=== PATIENT | male | born 1965 | race Caucasian/White ===

== ENCOUNTER → 2019-03-31 09:14 | Outpatient (BNVA) | payer MEDICARE, SELFPAY | PROVIDERS: Family Provider Nurse Practitioner; PCP Nurse Practitioner; Visit Provider Psychiatry & Neurology Psychiatry | DX: F31.9 Bipolar disorder, unspecified (principal) | CPT/HCPCS: 80053; 80164; 85025 ==

== ENCOUNTER → 2019-04-05 09:27 | Outpatient (BNVA) | payer MEDICARE, SELFPAY | PROVIDERS: Family Provider Nurse Practitioner; PCP Nurse Practitioner; Visit Provider Psychiatry & Neurology Psychiatry | DX: F31.74 Bipolar disorder, in full remission, most recent episode manic (principal); F10.21 Alcohol dependence, in remission | CPT/HCPCS: 99214 ==

== ENCOUNTER 2019-06-16 11:15 | Emergency (ER) | payer MEDICARE, SELFPAY ==
[2019-06-16 11:29] VITALS: BP 149/102; PULSE 88; RESP 18; TEMP 37.2; O2SAT 96; BMI 32.8
--- NOTE | 2019-06-16 11:54 | ED_ITS ---
HPI - General Adult General: Chief complaint: General Medical Stated complaint: BUMP ON LEFT SIDE OF HEAD Time Seen by Provider: 06/16/19 11:20 History of Present Illness: HPI narrative: Patient complains of swelling to the right protestant area for the last 3 to 4 days. This in the past and is just went away. He denies headache visual disturbances does not have any swelling claudication of his jaw denies any fever or any other signs and symptoms with this. Does not have any polymyalgia rheumatica. MD complaint: Skin swelling Onset (ago): day(s) Location: head Radiation: non-radiation Severity: mild Relieving factors: none Exacerbating factors: none Associated symptoms: Reports no associated symptoms; Deny chest pain, dyspnea, headache(s), nausea, rash or vomiting Review of Systems Narrative: Patient states he has some mild swelling to his right protestant area no pain fever or other related problems said he notices more when he chews food he can see that the muscle appears swelled. Const: Denies: fever, chills or body aches Eyes: Denies: change in vision or blurry vision ENMT: Denies: throat pain or nasal congestion Card: Denies: chest pain or shortness of breath on exertion Resp: Denies: shortness of breath, productive cough or non-productive cough GI: Denies: abdominal pain, nausea or vomiting : Denies: difficulty urinating Musc: Denies: extremity pain Skin/Breast: Denies: rash Neuro: Denies: headache Psych: Denies: anxiety or depression Rufino/Lymph: Denies: easy bruising PFS ED PFSH: Social History (Updated 04/05/19 @ 10:02 by Tavo Ayers LPN) Smoking and tobacco status: current every day smoker cigarettes Packs smoked per day: 1 Years cigarettes smoked: 35 Quit status (tobacco): has tried quititng Number of times tried to quit tobacco: 7 Second hand smoke exposure: Yes Smoking risk assessment/counseling performed?: Yes Tobacco counseling given: counseling >3 minutes Physical Exam Narrative: EXAM NARRATIVE: Possible mild swelling to the right protestant area very hard to distinguish from the left temporal area. But does seem slightly raised nontender to touch there is no erythema present does have full range of motion of his jaw with no pain no other noted problems. Const: COMMON NORMALS: no apparent distress, average body habitus and oriented x3 HENMT: COMMON NORMALS: normocephalic HEAD & SCALP: normal to inspection and normocephalic FACE & SINUS: normal facial exam Eye: COMMON NORMALS: conjunctivae normal GENERAL EYE: normal appearance of both eyes CONJUNCTIVA: Yes conjunctivae normal Neck/C-Spine: COMMON NORMALS: no JVD Chest: COMMONS NORMALS: inspection of chest normal Resp: COMMON NORMALS: normal respiratory effort and clear to auscultation bilaterally AUSCULTATION: clear to auscultation bilaterally Cardio: COMMON NORMALS: no JVD, regular rate and regular rhythm RATE: regular rate RHYTHM: regular rhythm GI: COMMON NORMALS: normal to inspection, nondistended, normoactive bowel sounds Extremity: COMMON NORMALS: normal to inspection and full ROM Neuro: COMMON NORMALS: oriented x3 Course Vital Signs: Vital signs: Vital Signs Temperature 98.9 F 06/16/19 11:29 Pulse Rate 88 06/16/19 11:29 Respiratory Rate 18 06/16/19 11:29 Blood Pressure 149/102 06/16/19 11:29 Pulse Oximetry 96 06/16/19 11:29 Discharge Plan Discharge Patient Disposition: Home, Self-Care Clinical Impression: Skin swelling Condition: Stable Prescriptions: No Action multivitamin Tablet 1 tab PO QAM RF: 0 aspirin 81 mg tablet,delayed release (DR/EC) 81 mg PO DAILY RF: 0 acetaminophen [Tylenol] 325 mg tablet 650 mg PO DAILY PRN (Reason: fever or pain) RF: 0 [place] Cough Drops 3.2 mg lozenge 3.2 mg MUCOUS MEM Q4H RF: 0 ibuprofen 200 mg tablet 200 mg PO Q6H PRNRF: 0 calcium carbonate [Calcium 500] 500 mg calcium (1,250 mg) tablet,chewable 500 mg PO DAILY RF: 0 ascorbic acid (vitamin C) 500 mg tablet 250 mg PO .AM RF: 0 divalproex [Depakote] 500 mg tablet,delayed release (DR/EC) 500 mg PO BID Qty: 60 RF: 2 risperidone [Risperdal] 0.5 mg tablet 0.5 mg PO DAILY Qty: 30 RF: 2 Discharge Orders: Discharge Order (Routine); Ordered 06/16/19 Ordered By: Amado Adams Referrals: Jessica Germain FNP [Primary Care Provider] - Discharge Diet: Usual diet Discharge Activity: Resume usual activity Activity Restrictions/Additional Instructions: Follow-up with Jessica Germain's nurse to see about getting referral to an ENT ER with Dr. Weir's nurse Vicki ask for an ENT referral. Coding Level of Care Code ED Scan Coordinator for Jermaine Zelaya
[2019-06-16 12:30] VITALS: BP 150/92; PULSE 85; RESP 16; O2SAT 95
== END 2019-06-16 12:30 | disposition home or self-care (01) ==
LOC: ER 12:12
PROVIDERS: Emergency Provider Nurse Practitioner Family; Family Provider Nurse Practitioner; PCP Nurse Practitioner
DX: R22.0 Localized swelling, mass and lump, head (principal); F17.210 Nicotine dependence, cigarettes, uncomplicated; Z79.82 Long term (current) use of aspirin
CPT/HCPCS: 12345; 99281

== ENCOUNTER → 2019-07-04 07:48 | Outpatient (BNVA) | payer MEDICARE, SELFPAY | PROVIDERS: Family Provider Nurse Practitioner; PCP Nurse Practitioner; Visit Provider Psychiatry & Neurology Psychiatry | DX: F10.21 Alcohol dependence, in remission (principal); F31.9 Bipolar disorder, unspecified | CPT/HCPCS: 99213 ==

== ENCOUNTER → 2019-10-17 08:23 | Outpatient (BNVA) | payer MEDICARE, SELFPAY | PROVIDERS: Family Provider Nurse Practitioner; PCP Nurse Practitioner; Visit Provider Psychiatry & Neurology Psychiatry | DX: F31.9 Bipolar disorder, unspecified (principal); F10.21 Alcohol dependence, in remission; F41.1 Generalized anxiety disorder | CPT/HCPCS: 99213 ==

== ENCOUNTER → 2020-01-17 07:37 | Outpatient (BNVA) | payer MEDICARE, SELFPAY | PROVIDERS: Family Provider Nurse Practitioner; PCP Nurse Practitioner; Visit Provider Psychiatry & Neurology Psychiatry | DX: F31.9 Bipolar disorder, unspecified (principal); F10.21 Alcohol dependence, in remission | CPT/HCPCS: 99213 ==

== ENCOUNTER → 2020-04-18 07:29 | Outpatient (BNVA) | payer MEDICARE, SELFPAY | PROVIDERS: Family Provider Nurse Practitioner; PCP Nurse Practitioner; Visit Provider Psychiatry & Neurology Psychiatry | DX: F31.9 Bipolar disorder, unspecified (principal); F10.21 Alcohol dependence, in remission | CPT/HCPCS: 99214 ==

== ENCOUNTER 2020-05-04 20:31 | Inpatient (IN) | payer MEDICARE, SELFPAY ==
[2020-05-04 21:09] VITALS: BP 136/92; PULSE 85; RESP 14; TEMP 37.1; O2SAT 96; BMI 33.1
--- NOTE | 2020-05-04 21:23 | ED_ITS ---
HPI - Psych General: Chief Complaint: Psychiatric Symptoms Stated Complaint: psych eval Time Seen by Provider: 05/04/20 21:20 Source: patient Mode of arrival: ambulatory Limitations: no limitations History of Present Illness: HPI Narrative: Patient is a 54-year-old male who presents to ED today requesting admission to NPU for thoughts of suicide. Patient tells me over the past few days he has felt suicidal with a plan to either stab myself or hang myself . He denies any previous suicide attempts. When asked if he is homicidal he states not yet-that is why I want to get help . Patient admits to auditory hallucinations. He has had these previously. He states he has a diagnosis of bipolar schizoaffective disorder. Patient sees Dr. Wood at [facility]. He states his last several visits have been telehealth visits. He tells me he takes Risperidone and Depakote. He has been taking these as prescribed. Patient admits to mild alcohol use. No drug use. MD complaint: suicidal ideation Onset (ago): day(s) Duration: constant History of same: Yes Relieving factors: none Exacerbating factors: none Associated psychiatric symptoms: depression and auditory hallucinations Associated symptoms: Reports auditory hallucinations, depression and suicidal ideation; Deny visual hallucinations or homicidal ideation Treatments prior to arrival: none If self harm: admits thoughts of self harm and has plan Review of Systems Const: Denies: fever(s) or chills Card: Denies: chest pain, palpitations, lightheadedness or syncope Resp: Denies: dyspnea GI: Denies: abdominal pain, nausea, vomiting or diarrhea Skin/Breast: Denies: rash Neuro: Denies: headache(s) Psych: Reports: anxiety, depression, hopelessness, loss of interest, auditory hallucinations and suicidal ideation; Denies: visual hallucinations or homicidal ideation [facility] ED PFSH: Social History (Updated 04/05/19 @ 10:02 by Tavo Ayers LPN) Smoking and tobacco status: current every day smoker cigarettes Packs smoked per day: 1 Years cigarettes smoked: 35 Quit status (tobacco): has tried quititng Number of times tried to quit tobacco: 7 Second hand smoke exposure: Yes Smoking risk assessment/counseling performed?: Yes Tobacco counseling given: counseling >3 minutes Physical Exam Const: COMMON NORMALS: no acute distress, patient oriented x3, alert and well nourished GENERAL APPEARANCE: cooperative ORIENTATION/CONSCIOUSNESS: Yes awake, Yes oriented to person, Yes oriented to place and Yes oriented to time HENMT: COMMON NORMALS: normocephalic and atraumatic HEAD & SCALP: normocephalic and atraumatic Resp: COMMON NORMALS: normal respiratory effort and clear to auscultation bilaterally AUSCULTATION: clear to auscultation bilaterally Cardio: COMMON NORMALS: regular rate and regular rhythm RATE: regular rate RHYTHM: regular rhythm Neuro: MANUEL COMA SCALE: document GCS findings [place] coma scale eye opening: Spontaneous [place] coma scale verbal response: Orientated Manuel coma scale motor response: Obey commands Manuel coma scale total score: 15 COMMON NORMALS: patient oriented x3 SENSORIUM/ORIENTATION: Yes alert, Yes oriented to person, Yes oriented to place and Yes oriented to time Psych: COMMON NORMALS: mental status grossly normal, Normal thought process present, cooperative, normal affect and activity/motor behavior normal APPEARANCE: Yes grossly normal ATTITUDE: Yes calm ACTIVITY/MOTOR BEHAVIOR: Yes appropriate eye contact and No psychomotor agitation SPEECH: Yes slow MOOD & AFFECT: Yes euthymic mood THOUGHT PROCESS: Normal thought process present THOUGHT CONTENT: Yes Normal thought content present A TTENTION/CONCENTRATION: Yes attention grossly intact and Yes concentration grossly intact MEMORY/COGNITION: Yes memory grossly intact and Yes cognition grossly intact INSIGHT: Good insight present (Psych) JUDGEMENT: Good judgement present (Psych) MDM - Psych Lab Data: Labs: Lab Results 05/04/20 05/04/20 05/04/20 Range/Units 21:40 21:40 21:40 WBC 8.7 (4.0-10.0) 10^3/ uL RBC 4.52 (4.1-5.3) 10^6/u L Hgb 15.1 (11.7-16.6) g/dL Hct 43.0 (42.0-52.0) % MCV 95.1 H (80-94) fL MCH 33.4 (28.0-34.0) pg MCHC 35.1 (30.0-36.0) g/dL RDW 11.4 L (12.1-15.1) % Plt Count 294 (130-400) 10^3/c mm MPV 10.3 (7.4-10.4) fL Neut % (Auto) 62.0 % Lymph % (Auto) 29.1 % [place] % (Auto) 7.4 % Eos % (Auto) 0.8 % Baso % (Auto) 0.6 % Neut # (Auto) 5.38 (1.8-7.7) 10^3/u L Lymph # (Auto) 2.5 (0.8-4.8) 10^3/u L [place] # (Auto) 0.6 (0.2-0.9) 10^3/u L Eos # (Auto) 0.1 (0.0-0.8) 10^3/u L Baso # (Auto) 0.1 (0.0-0.1) 10^3/u L Nucleated RBC % (a uto) 0 % Nucleated RBCs # 0.0 /100WBC Sodium 137 (136-145) mmol/L Potassium 4.4 (3.5-5.1) mmol/L Chloride 103 (98-107) mmol/L Carbon Dioxide 23 (22-29) mmol/L Anion Gap 15.4 (5-19) BUN 11 (6-20) mg/dL Creatinine 0.7 (0.7-1.2) mg/dL GFR Calculation 118.0 (90-130) mL/min Glucose 95 (65-115) mg/dL Calculated Osmolal ity 283 L (285-295) mOsm/k g Calcium 9.3 (8.5-10.5) mg/dL Total Bilirubin 0.3 (0.15-1.2) mg/dL AST 26 (0-40) U/L ALT 29 (0-41) U/L Alkaline Phosphata se 68 (40-130) IU/L Total Protein 7.1 (6.6-8.7) g/dL Albumin 4.3 (3.5-5.2) g/dL Globulin 2.8 (1.3-4.6) g/dL Salicylates < 0.3 L (3-10) mg/dL Urine Opiates Scre en Negative (Negative) ng/mL Acetaminophen < 5.0 L (10-30) ug/mL Ur Barbiturates Sc reen Negative (Negative) ng/mL Ur Phencyclidine S crn Negative (Negative) ng/mL Ur Amphetamines Sc reen Negative (Negative) ng/mL U Benzodiazepines Scrn Negative (Negative) ng/mL Urine Cocaine Scre en Negative (Negative) ng/mL U Marijuana (THC) Screen Positive H (Negative) ng/mL Ethyl Alcohol < 10 (0-10) mg/dL Discharge Plan Discharge Patient Disposition: Admitted As Inpatient Clinical Impression: Suicidal ideation, Auditory hallucinations Condition: Stable Coding Level of Care Code ED Resizer Operator for Jermaine Zelaya Exam Detailed
[2020-05-04 21:52] LABS: Basophils # 0.1 10^3/uL (0.0-0.1); Basophils % 0.6 %; Eosinophils # 0.1 10^3/uL (0.0-0.8); Eosinophils % 0.8 %; Hemoglobin 15.1 g/dL (11.7-16.6); Lymphocytes # 2.5 10^3/uL (0.8-4.8); Lymphocytes % 29.1 %; Mean Corpuscular HGB Conc 35.1 g/dL (30.0-36.0); Mean Corpuscular Hemoglobin 33.4 pg (28.0-34.0); Mean Corpuscular Volume 95.1 fL (80-94); Mean Platelet Volume 10.3 fL (7.4-10.4); Monocytes # 0.6 10^3/uL (0.2-0.9); Monocytes % 7.4 %; Neutrophils # 5.38 10^3/uL (1.8-7.7); Nucleated Red Blood Cells % 0 %; Platelet Count 294 10^3/cmm (130-400); Red Blood Count 4.52 10^6/uL (4.1-5.3); Red Cell Distribution Width 11.4 % (12.1-15.1); White Blood Count 8.7 10^3/uL (4.0-10.0)
[2020-05-04 22:03] LABS: Amphetamines Screen Urine Negative (Negative); Barbiturates Screen Urine Negative (Negative); Benzodiazepines Screen Urine Negative (Negative); Cocaine Screen Urine Negative (Negative); Opiate Screen Urine Negative (Negative); PCP Screen Urine Negative (Negative); THC Screen Urine Positive (Negative)
[2020-05-04 22:06] LABS: Alanine Aminotransferase 29 U/L (0-41); Albumin Level 4.3 g/dL (3.5-5.2); Alkaline Phosphatase 68 IU/L (40-130); Anion Gap 15.4 (5-19); Aspartate Amino Transferase 26 U/L (0-40); Blood Urea Nitrogen 11 mg/dL (6-20); Calcium 9.3 mg/dL (8.5-10.5); Carbon Dioxide 23 mmol/L (22-29); Chloride 103 mmol/L (98-107); Globulin 2.8 g/dL (1.3-4.6); Glucose 95 mg/dL (65-115); Osmolality Calculated 283 mOsm/kg (285-295); Potassium 4.4 mmol/L (3.5-5.1); Sodium 137 mmol/L (136-145); Total Bilirubin 0.3 mg/dL (0.15-1.2); Total Protein 7.1 g/dL (6.6-8.7)
[2020-05-04 22:09] LABS: Acetaminophen < 5.0 ug/mL (10-30); Alcohol Level < 10 mg/dL (0-10); Salicylate < 0.3 mg/dL (3-10)
[2020-05-04 22:53] VITALS: BP 136/97; PULSE 84; RESP 14; O2SAT 95
[2020-05-04 23:05] VITALS: BP 138/98; PULSE 79; RESP 18; TEMP 36.4; O2SAT 95
--- NOTE | 2020-05-05 00:24 | PC.NURSE ---
Skin assessment revealed old surgical scar to left knee. He has minor scrapes and scratches from clearing brush.
[2020-05-05 06:00] VITALS: BP 115/72; PULSE 84; RESP 18; TEMP 36.4; O2SAT 94
[2020-05-05] MEDS: nicotine 2 mg Gum BUCCAL ×4 (08:04→17:08)
[2020-05-05] MEDS: multivitamin therapeutic Tablet 1 TAB PO (08:43)
[2020-05-05] MEDS: risperiDONE 0.25 mg Tablet 0.5 MG PO ×2 (08:43→14:25)
[2020-05-05] MEDS: aspirin 81 mg EC Tablet PO (08:43)
[2020-05-05] MEDS: ascorbic acid 500 mg Tablet 250 MG PO (08:43)
[2020-05-05] MEDS: cholecalciferol (vitamin D3) 5,000 unit Tablet 5000 UNIT PO (09:47)
[2020-05-05 12:32] LABS: Valproic Acid Level 26.8 ug/mL (50-100)
[2020-05-05] MEDS: divalproex DR 500 mg Tablet PO ×2 (12:57→14:25)
[2020-05-05 13:58] VITALS: BP 104/69; PULSE 95; RESP 18; TEMP 37.1
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
[2020-05-05 20:49] VITALS: BP 107/68; PULSE 73; RESP 17; TEMP 36.2; O2SAT 95
[2020-05-05] MEDS: hyDROXYzine 25 mg Capsule 50 MG PO (21:07)
[2020-05-05] MEDS: trazodone 50 mg Tablet PO (21:07)
[2020-05-05] MEDS: OLANZapine 5 mg ODT PO (21:07)
[2020-05-06 06:00] VITALS: BP 114/72; PULSE 88; RESP 17; TEMP 36.9; O2SAT 95
[2020-05-06] MEDS: ascorbic acid 500 mg Tablet 250 MG PO (06:13)
[2020-05-06] MEDS: multivitamin therapeutic Tablet 1 TAB PO (06:13)
[2020-05-06] MEDS: nicotine 2 mg Gum BUCCAL ×4 (06:38→16:59)
[2020-05-06] MEDS: cholecalciferol (vitamin D3) 5,000 unit Tablet 5000 UNIT PO (08:55)
[2020-05-06] MEDS: risperiDONE 1 mg Tablet PO (08:55)
[2020-05-06] MEDS: divalproex DR 500 mg Tablet 1000 MG PO (08:55)
[2020-05-06] MEDS: aspirin 81 mg EC Tablet PO (08:55)
[2020-05-06 14:00] VITALS: BP 106/76; PULSE 77; RESP 16; TEMP 36.9; O2SAT 94
--- NOTE | 2020-05-06 18:57 | P.PN_ITS ---
Subjective NPU Subjective: Interval history: Kevin presents today reporting that he is feeling okay without any side effects of the medication of the knees today. He reports he is feeling safe in the hospital but denied feeling safe about the idea of going home today. We discussed the challenges he is dealing with right now living alone. We discussed the possibility of switching his Depakote to the extended release version. But he agreed that having all his medication at 1 time in the morning would assist in him avoiding nonadherence to his doses. Mental Status Exam MSE Comments: his is an obese white male with hospital scrubs on with limited eye contact and adequate grooming. No abnormal movements except for mild psychomotor retardation. Cooperative with exam in mild distress. Speech was decreased rate and volume. Mood described as okay, affect congruent. Thought process organized. Thought content: Patient denied suicidal or homicidal ideation, but he is unable to contract for safety outside of the hospital, he endorsed paranoia and paranoia was noted/he was guarded, he endorsed auditory hallucinations but denied visual hallucinations. Attention and concentration were intact and memory appeared mostly reliable but none were formally tested. He is alert and oriented x3. Insight and judgment appeared fair and impulse control appeared limited. Vitals/I&O/Wt Last Vital Signs Temp 98.1 F 05/06/20 22:00 Pulse 88 05/06/20 22:00 Resp 16 05/06/20 22:00 BP 103/71 05/06/20 22:00 Pulse Ox 94 05/06/20 22:00 Weight last 48 hrs Weight 98.883 kg Data NPU : 05/04/20 21:40 05/04/20 21:40 A&P Additional A&P Information (1) Suicidal ideation: (2) Auditory hallucinations: (3) Alcohol use disorder, severe, in sustained remission: (4) Bipolar 1 disorder: Additional A&P Information This is a 54-year-old white male with a long history of mental health and addiction issues who presents reporting suicidal thoughts was brought into the hospital currently adherent to medication but open to changes. 1. Continue current medication. 2. Continue every 15 minute checks for safety. 3. Encourage individual, group and milieu therapies. 4. Encourage sober living treatment after discharge at the highest level of care to which he is willing to commit. Involuntary Hold Information 96 Hour Hold: 96 Hour Involuntary Admission: No Attestations NPU Medical Necessity Statement*: Inpatient hospitalization is medically necessary and the clinically appropriate intervention at this time. We will monitor medications and make changes as indicated. Likely length of stay 2-4 days. Coding Level of Care Code Acute Residential Care Facility Manager for Jermaine Zelaya
--- NOTE | 2020-05-06 19:59 | PC.RESP ---
Smoking Cessation information sent to patient.
[2020-05-06 22:00] VITALS: BP 103/71; PULSE 88; RESP 16; TEMP 36.7; O2SAT 94
[2020-05-07] MEDS: multivitamin therapeutic Tablet 1 TAB PO (06:11)
[2020-05-07] MEDS: ascorbic acid 500 mg Tablet 250 MG PO (06:11)
[2020-05-07] MEDS: nicotine 2 mg Gum BUCCAL ×4 (06:12→17:31)
[2020-05-07 06:42] VITALS: BP 97/66; PULSE 76; RESP 18; TEMP 36.6; O2SAT 96
[2020-05-07] MEDS: cholecalciferol (vitamin D3) 5,000 unit Tablet 5000 UNIT PO (08:57)
[2020-05-07] MEDS: divalproex DR 500 mg Tablet 1000 MG PO (08:57)
[2020-05-07] MEDS: risperiDONE 1 mg Tablet PO (08:58)
[2020-05-07] MEDS: aspirin 81 mg EC Tablet PO (08:58)
--- NOTE | 2020-05-07 13:44 | PC.SOCIAL ---
*IMM* Patient received Page two of IMM. Placed copy in chart and initialled.
[2020-05-07 14:00] VITALS: BP 119/81; PULSE 87; RESP 16; TEMP 36.1; O2SAT 96
--- NOTE | 2020-05-07 17:59 | PM.NPN ---
Subjective NPU Subjective: Interval history: Kevin presents today reporting that he is feeling a little bit better. We discussed the fact that his sister is his guardian which was not initially clear. He reports that he has come to understand that he needs to avoid isolation because that can lead to his low feelings. We reviewed his medication and identified he is having some improvement. We began discussing possible discharge considerations but he understands we need to have his sister be an integral part of this. He endorses some improvement in his overall presentation. And reported that getting his sleep on track has been difficult as he is felt sometimes overmedicated with the sleep medication and sometimes having insomnia with lower dosing. Mental Status Exam MSE Comments: This is an obese white male with hospital scrubs on with limited eye contact and adequate grooming. No abnormal movements except for mild psychomotor retardation. Cooperative with exam in less distress. Speech was decreased rate and volume. Mood described as may be a little better, affect congruent. Thought process organized. Thought content: Patient denied suicidal or homicidal ideation, but he is unable to contract for safety outside of the hospital, he endorsed paranoia and paranoia was noted/he was guarded, he endorsed auditory hallucinations but denied visual hallucinations. Attention and concentration were intact and memory appeared mostly reliable but none were formally tested. He is alert and oriented x3. Insight and judgment appeared fair and impulse control appeared limited. Vitals/I&O/Wt Last Vital Signs Temp 97.2 F L 05/07/20 20:10 Pulse 79 05/07/20 20:10 Resp 17 05/07/20 20:10 BP 112/82 05/07/20 20:10 Pulse Ox 94 05/07/20 20:10 Data NPU : 05/04/20 21:40 05/04/20 21:40 A&P Additional A&P Information (1) Suicidal ideation: (2) Auditory hallucinations: (3) Alcohol use disorder, severe, in sustained remission: (4) Bipolar 1 disorder: Additional A&P Information This is a 54-year-old white male with a long history of mental health and addiction issues who presents reporting suicidal thoughts was brought into the hospital currently adherent to medication but open to changes. 1. Continue current medication. 2. Continue every 15 minute checks for safety. 3. Encourage individual, group and milieu therapies. 4. Encourage sober living treatment after discharge at the highest level of care to which he is willing to commit. Involuntary Hold Information 96 Hour Hold: 96 Hour Involuntary Admission: No Attestations NPU Medical Necessity Statement*: Inpatient hospitalization is medically necessary and the clinically appropriate intervention at this time. We will monitor medications and make changes as indicated. Likely length of stay 1-3 days. Coding Level of Care Code Acute Precision Instrument And Tool Maker for Jermaine Zelaya
[2020-05-07 20:10] VITALS: BP 112/82; PULSE 79; RESP 17; TEMP 36.2; O2SAT 94
[2020-05-07] MEDS: trazodone 50 mg Tablet PO (21:33)
[2020-05-07] MEDS: hyDROXYzine 25 mg Capsule 50 MG PO (21:42)
--- NOTE | 2020-05-07 21:43 | PC.NURSE ---
trazadone 50mg po and Visteril 50mg requested for sleep and anxiety.
[2020-05-08 06:00] VITALS: BP 116/60; PULSE 66; RESP 18; TEMP 36.7; O2SAT 90
[2020-05-08] MEDS: nicotine 2 mg Gum BUCCAL ×4 (06:21→18:31)
[2020-05-08] MEDS: ascorbic acid 500 mg Tablet 250 MG PO (08:03)
[2020-05-08] MEDS: cholecalciferol (vitamin D3) 5,000 unit Tablet 5000 UNIT PO (08:04)
[2020-05-08] MEDS: risperiDONE 1 mg Tablet PO (08:04)
[2020-05-08] MEDS: multivitamin therapeutic Tablet 1 TAB PO (08:04)
[2020-05-08] MEDS: divalproex DR 500 mg Tablet 1000 MG PO (08:05)
[2020-05-08] MEDS: aspirin 81 mg EC Tablet PO (08:05)
[2020-05-08 14:00] VITALS: BP 106/76; PULSE 79; RESP 18; TEMP 36.1; O2SAT 94
--- NOTE | 2020-05-08 18:30 | PM.NPN ---
Subjective NPU Subjective: Interval history: Kevin presents today reporting that he is feeling better to some degree as he is hopeful for some alternatives.. He reports that he did speak to his sister and is open to working with the treatment team for possible placements. He identified that being isolated is bad for him. He reports that he is feeling the medication changes are probably helpful. We discussed the possibility of getting a Depakote level at trough so that is outpatient team ultimately can determine whether the 1000 milligrams when properly administered is a sufficient dose. Mental Status Exam MSE Comments: This is an obese white male with hospital scrubs on with limited eye contact and adequate grooming. No abnormal movements except for mild psychomotor retardation. Cooperative with exam in less distress. Speech was decreased rate and volume. Mood described as doing all right, affect congruent. Thought process organized. Thought content: Patient denied suicidal or homicidal ideation, he reports he is starting to feel like he could manage elsewhere with a discharge destination is identified, he endorsed improvement in his paranoia and and he appeared less guarded, he endorsed that his hallucinations have quieted. Attention and concentration were intact and memory appeared mostly reliable but none were formally tested. He is alert and oriented x3. Insight and judgment appeared fair and impulse control appeared limited. Vitals/I&O/Wt Last Vital Signs Temp 97.6 F 05/08/20 20:29 Pulse 80 05/08/20 20:29 Resp 17 05/08/20 20:29 BP 113/78 05/08/20 20:29 Pulse Ox 94 05/08/20 20:29 Data NPU : 05/04/20 21:40 05/04/20 21:40 A&P Additional A&P Information (1) Suicidal ideation: (2) Auditory hallucinations: (3) Alcohol use disorder, severe, in sustained remission: (4) Bipolar 1 disorder: Additional A&P Information This is a 54-year-old white male with a long history of mental health and addiction issues who presents reporting suicidal thoughts was brought into the hospital currently adherent to medication but open to changes. 1. Continue current medication. 2. Continue every 15 minute checks for safety. 3. Encourage individual, group and milieu therapies. 4. Encourage sober living treatment after discharge at the highest level of care to which he is willing to commit. Involuntary Hold Information 96 Hour Hold: 96 Hour Involuntary Admission: No Attestations NPU Medical Necessity Statement*: Inpatient hospitalization is medically necessary and the clinically appropriate intervention at this time. We will monitor medications and make changes as indicated. Likely length of stay 1-2 days. Coding Level of Care Code Acute Combine Mechanic for Jermaine Zelaya
[2020-05-08 20:29] VITALS: BP 113/78; PULSE 80; RESP 17; TEMP 36.4; O2SAT 94
[2020-05-09] MEDS: hyDROXYzine 25 mg Capsule 50 MG PO ×2 (01:22→21:18)
[2020-05-09] MEDS: trazodone 50 mg Tablet PO ×2 (01:50→21:18)
--- NOTE | 2020-05-09 02:54 | PC.NURSE ---
Pm assessment pt reports hx of COPD, lungs are diminished bilaterally on auscultation, pt denies any pain at this time, pt denies VH but states that he hears voices all the time. Pt reports lack of sleep and an increase of depression symptoms that have worsened over the last 3-4 weeks. Pt denies SI/HI at this time, pt contracted for safety.
[2020-05-09 06:00] VITALS: BP 113/78; PULSE 80; RESP 17; TEMP 36.4; O2SAT 94
[2020-05-09] MEDS: ascorbic acid 500 mg Tablet 250 MG PO (07:46)
[2020-05-09] MEDS: aspirin 81 mg EC Tablet PO (07:47)
[2020-05-09] MEDS: multivitamin therapeutic Tablet 1 TAB PO (07:47)
[2020-05-09] MEDS: divalproex DR 500 mg Tablet 1000 MG PO (07:47)
[2020-05-09] MEDS: cholecalciferol (vitamin D3) 5,000 unit Tablet 5000 UNIT PO (07:47)
[2020-05-09] MEDS: risperiDONE 1 mg Tablet PO ×2 (07:47→16:32)
[2020-05-09] MEDS: nicotine 2 mg Gum BUCCAL ×4 (07:48→16:32)
--- NOTE | 2020-05-09 11:10 | PC.SOCIAL ---
Important Medicare Message Reviewed updated Important Medicare Message with patient. Updated copy placed in chart and provided to patient.
--- NOTE | 2020-05-09 13:19 | PM.NPN ---
Subjective NPU Subjective: Interval history: Patient reports intermittent passive suicidal thoughts with no active intent or plan but continues to have concerns about potentially harming himself on leaving the hospital, denies any current suicidal ideation Continues to report ongoing depressive symptoms with mood congruent auditory hallucinations of hearing voices saying that he should just end his life but states that he has no thoughts of acting on these voices Denies any visual hallucinations Reports being compliant with medication and denies any medication side effects Reports improving appetite Continues to report difficulty with sleep requiring a sleep aid Per staff report, no interval behavioral disturbances Medications: Reviewed: Yes Mental Status Exam MSE Comments: Appears stated age, appropriately groomed and dressed in hospital scrubs, steady gait, calm, cooperative, interactive, good eye contact Psychomotor activity is neither increased nor decreased, no agitation Speech is normal rate, low volume, spontaneous, clear articulation, not pressured I feel depressed, full range, not labile Alert and oriented to person, place, time, situation Memory and concentration appear to be intact per interview Thought process, linear, no flight of ideas, no looseness of associations Thought content, no delusions, does not appear to be attending to any internal stimuli, no current suicidal ideation, no homicidal ideation Insight and judgment appear to be intact Vitals/I&O/Wt Last Vital Signs Temp 97.6 F 05/09/20 06:00 Pulse 80 05/09/20 06:00 Resp 17 05/09/20 06:00 BP 113/78 05/09/20 06:00 Pulse Ox 94 05/09/20 06:00 Data NPU : 05/04/20 21:40 05/04/20 21:40 A&P Assessment and plan (1) Suicidal ideation: Status: Acute (2) Schizoaffective disorder: Status: Acute Additional A&P Information 54-year-old male with longstanding history of schizoaffective disorder bipolar type presented with ongoing suicidal ideation with concerns of worsening depressive symptoms in the context of his worsening suicidal ideation and mood congruent auditory hallucinations. Patient's Depakote was increased secondary to difficulty with compliance with his second dose at home. Patient would benefit from repeating valproic acid level for effect as well as increasing risperidone to twice daily targeting mood and psychotic symptoms while monitoring for ongoing suicidal ideation. INCREASE to risperidone 1 mg twice daily Repeat Depakote level Continue to encourage patient to participate in unit activities, unit milieu Involuntary Hold Information 96 Hour Hold: 96 Hour Involuntary Admission: No Attestations NPU Medical Necessity Statement*: Patient continues require psychiatric hospitalization given ongoing depressive symptoms with suicidal ideation and psychotic symptoms Coding Level of Care Code Acute Child Welfare Specialist for [facility] Bina Diagnoses Suicidal ideation R45.851 Schizoaffective disorder F25.9
[2020-05-09 14:00] VITALS: BP 112/81; PULSE 80; RESP 20; TEMP 36.8; O2SAT 96
[2020-05-09 14:49] LABS: Valproic Acid Level 62.3 ug/mL (50-100)
--- NOTE | 2020-05-09 19:30 | P.PN_ITS ---
NPU Therapy Progress Note Therapy Progress Note Date: 05/09/20 Time In: 18:30 Time Out: 18:50 Symptoms Reported: noted to be irritable, reported frustration at not being able to exercise as says walking agitates the other patients Mood: stable; however, became agitated upon the end of conversation Progress Note: AIRPORT LOCATION MANAGER approached Kevin while in the dayroom, working on a puzzle. AIRPORT LOCATION MANAGER introduced herself and Kevin explains how he came to be hospitalized at [facility]. He reports that he was able to take himself to the ER after realizing his symptoms became elevated (psychosis) which is different that in previous admissions. He reports his hx is to escalate with his sx and becomes involved with law enforcement, either escorted to the hospital by PD or he is incarcerated. Intervention: AIRPORT LOCATION MANAGER listened and provided support. AIRPORT LOCATION MANAGER attempted to discuss how therapy could be beneficial to Kevin; however, it was observed he became agitated and told AIRPORT LOCATION MANAGER that this information is no different than information he has been hearing since 1995. AIRPORT LOCATION MANAGER provided Kevin her card and encouraged he follow up if he has questions. Reported Goals Before Discharge: none reported
--- NOTE | 2020-05-09 19:30 | PM.NPTHER ---
NPU Therapy Progress Note Therapy Progress Note Date: 05/09/20 Time In: 18:30 Time Out: 18:50 Symptoms Reported: noted to be irritable, reported frustration at not being able to exercise as says walking agitates the other patients Mood: stable; however, became agitated upon the end of conversation Progress Note: LEHR LOADER approached Kevin while in the dayroom, working on a puzzle. LEHR LOADER introduced herself and Kevin explains how he came to be hospitalized at [facility]. He reports that he was able to take himself to the ER after realizing his symptoms became elevated (psychosis) which is different that in previous admissions. He reports his hx is to escalate with his sx and becomes involved with law enforcement, either escorted to the hospital by PD or he is incarcerated. Intervention: LEHR LOADER listened and provided support. LEHR LOADER attempted to discuss how therapy could be beneficial to Kevin; however, it was observed he became agitated and told LEHR LOADER that this information is no different than information he has been hearing since 1995. LEHR LOADER provided Kevin her card and encouraged he follow up if he has questions. Reported Goals Before Discharge: none reported
[2020-05-09] MEDS: OLANZapine 5 mg ODT PO (21:18)
--- NOTE | 2020-05-09 21:20 | PC.NURSE ---
Patient requested Vistaril 50mg PO for anxiety. also was given 5mg Zyprexa PO for agitation.
[2020-05-09 22:00] VITALS: BP 118/61; PULSE 81; RESP 18; TEMP 36.8; O2SAT 95
[2020-05-10 06:00] VITALS: BP 113/66; PULSE 71; RESP 17; TEMP 36.9; O2SAT 94
[2020-05-10] MEDS: ascorbic acid 500 mg Tablet 250 MG PO (08:24)
[2020-05-10] MEDS: nicotine 21 mg Patch 1 PATCH TRANSDERMA (08:24)
[2020-05-10] MEDS: risperiDONE 1 mg Tablet PO ×2 (08:25→17:10)
[2020-05-10] MEDS: aspirin 81 mg EC Tablet PO (08:25)
[2020-05-10] MEDS: divalproex DR 500 mg Tablet 1000 MG PO (08:25)
[2020-05-10] MEDS: cholecalciferol (vitamin D3) 5,000 unit Tablet 5000 UNIT PO (08:25)
[2020-05-10] MEDS: multivitamin therapeutic Tablet 1 TAB PO (08:25)
--- NOTE | 2020-05-10 12:05 | PC.SOCIAL ---
1100 Important Medicare Message Updated copy of Important Medicare Message reviewed with patient. Updated copy in chart and provided to patient.
--- NOTE | 2020-05-10 13:02 | P.PN_ITS ---
Subjective NPU Subjective: Interval history: Patient states that he was able to sleep through the night for the first time in a while last night Reports some improvement in depressive symptoms, denies any suicidal ideation Continues to report auditory hallucinations that are mood congruent, denies any visual hallucinations, denies any delusions Reports being compliant with his medication, denies any medication side effects States that his appetite is improving Per staff report, no interval behavioral disturbances Mental Status Exam MSE Comments: Sitting on his bed, tired appearing, appropriately groomed and dressed, good eye contact, calm, cooperative Psychomotor activity is neither increased nor decreased, no agitation Speech is normal rate, low volume, spontaneous, clear articulation, not pressured I feel little better, distracted, not labile Alert and oriented to person, place, time, situation Memory and concentration appear to be intact per interview Thought process, linear, no flight of ideas, no looseness of associations Thought content, no delusions, does not appear to be attending to any internal stimuli, no current suicidal ideation, no homicidal ideation Insight and judgment appear to be intact Vitals/I&O/Wt Last Vital Signs Temp 98.5 F 05/10/20 06:00 Pulse 71 05/10/20 06:00 Resp 17 05/10/20 06:00 BP 113/66 05/10/20 06:00 Pulse Ox 94 05/10/20 06:00 Data NPU : 05/04/20 21:40 05/04/20 21:40 A&P Assessment and plan (1) Suicidal ideation: Status: Acute (2) Schizoaffective disorder: Status: Acute Additional A&P Information Continues to report some depressive symptoms, mood congruent auditory hallucinations but denies any suicidal ideation and reports overall some improvement. CONTINUE current medication, continue to monitor Involuntary Hold Information 96 Hour Hold: 96 Hour Involuntary Admission: No Attestations NPU Medical Necessity Statement*: Continues to require psychiatric hospitalization for medication stabilization Coding Level of Care Code Acute Composing Machine Operator for Jermaine Zelaya Diagnoses Suicidal ideation R45.851 Schizoaffective disorder F25.9
[2020-05-10 14:00] VITALS: BP 107/77; PULSE 85; RESP 20; TEMP 36.4; O2SAT 95
[2020-05-10] MEDS: trazodone 50 mg Tablet PO (20:13)
[2020-05-10] MEDS: hyDROXYzine 25 mg Capsule 50 MG PO (20:14)
[2020-05-10] MEDS: OLANZapine 5 mg ODT PO (20:15)
[2020-05-10 22:00] VITALS: BP 111/81; PULSE 76; RESP 18; TEMP 36.6; O2SAT 94
[2020-05-11 06:00] VITALS: BP 128/75; PULSE 72; RESP 17; TEMP 36.8; O2SAT 96
[2020-05-11] MEDS: aspirin 81 mg EC Tablet PO (09:27)
[2020-05-11] MEDS: ascorbic acid 500 mg Tablet 250 MG PO (09:27)
[2020-05-11] MEDS: divalproex DR 500 mg Tablet 1000 MG PO (09:27)
[2020-05-11] MEDS: multivitamin therapeutic Tablet 1 TAB PO (09:28)
[2020-05-11] MEDS: risperiDONE 1 mg Tablet PO ×2 (09:28→16:51)
[2020-05-11] MEDS: nicotine 21 mg Patch 1 PATCH TRANSDERMA (09:35)
--- NOTE | 2020-05-11 13:07 | P.PN_ITS ---
Subjective NPU Subjective: Interval history: Reports that he has slept well the last couple of nights and is feeling significantly better with no interval suicidal ideation Denies any interval auditory hallucinations Reports significant improvement to his depressive symptoms Reports being compliant with medication and denies any medication side effects Mental Status Exam MSE Comments: Appropriately groomed and dressed, calm and cooperative, good eye contact, pleasant Psychomotor activity is neither increased nor decreased, no agitation Speech is normal rate, low volume, spontaneous, clear articulation, not pressured I feel good, full range of affect, not labile Alert and oriented to person, place, time, situation Memory and concentration appear to be intact per interview Thought process, linear, no flight of ideas, no looseness of associations Thought content, no delusions, no hallucinations, no current suicidal ideation, no homicidal ideation Insight and judgment appear to be intact Vitals/I&O/Wt Last Vital Signs Temp 98.3 F 05/11/20 06:00 Pulse 72 05/11/20 06:00 Resp 17 05/11/20 06:00 BP 128/75 05/11/20 06:00 Pulse Ox 96 05/11/20 06:00 Data NPU : 05/04/20 21:40 05/04/20 21:40 A&P Assessment and plan (1) Suicidal ideation: Status: Acute (2) Schizoaffective disorder: Status: Acute Qualifiers: Schizoaffective disorder type: depressive Qualified Code(s): F25.1 - Schizoaffective disorder, depressive type Additional A&P Information CONTINUE current medication, continue to monitor Involuntary Hold Information 96 Hour Hold: 96 Hour Involuntary Admission: No Attestations NPU Medical Necessity Statement*: Continues to require psychiatric hospitalization medication stabilization, coordination for safe discharge Coding Level of Care Code Acute Automatic Glove Former for [facility] Garcia Diagnoses Suicidal ideation R45.851 Schizoaffective disorder F25.1 Schizoaffective disorder type: depressive
[2020-05-11 14:00] VITALS: BP 116/77; PULSE 73; RESP 20; TEMP 36.3; O2SAT 94
[2020-05-11] MEDS: hyDROXYzine 25 mg Capsule 50 MG PO (20:44)
[2020-05-11] MEDS: trazodone 50 mg Tablet PO (20:44)
[2020-05-11 21:11] VITALS: BP 115/77; PULSE 80; RESP 18; TEMP 36.8; O2SAT 94
[2020-05-12 06:00] VITALS: BP 131/83; PULSE 63; RESP 17; TEMP 36.8; O2SAT 99
[2020-05-12] MEDS: risperiDONE 1 mg Tablet PO ×2 (08:04→17:10)
[2020-05-12] MEDS: multivitamin therapeutic Tablet 1 TAB PO (08:04)
[2020-05-12] MEDS: cholecalciferol (vitamin D3) 5,000 unit Tablet 5000 UNIT PO (08:04)
[2020-05-12] MEDS: aspirin 81 mg EC Tablet PO (08:04)
[2020-05-12] MEDS: ascorbic acid 500 mg Tablet 250 MG PO (08:05)
[2020-05-12] MEDS: divalproex DR 500 mg Tablet 1000 MG PO (08:05)
[2020-05-12] MEDS: nicotine 21 mg Patch 1 PATCH TRANSDERMA (09:32)
--- NOTE | 2020-05-12 13:30 | PM.NPN ---
Subjective NPU Subjective: Interval history: Reports significant improvement in depressive symptoms, denies any interval suicidal ideation or thoughts about self-harm Reports sustained improvement in sleep Reports appetite has been good Denies any interval auditory hallucinations Reports being compliant with medication and denies any medication side effect Mental Status Exam MSE Comments: Sitting up on his bed, polite, interactive, appropriately groomed and dressed, good eye contact Psychomotor activity is neither increased nor decreased, no agitation Speech is normal rate, low volume, spontaneous, clear articulation, not pressured Good, full range of affect, not labile Alert and oriented to person, place, time, situation Memory and concentration appear to be intact per interview Thought process, linear, no flight of ideas, no looseness of associations Thought content, no delusions, no hallucinations, no current suicidal ideation, no homicidal ideation Insight and judgment appear to be intact Vitals/I&O/Wt Last Vital Signs Temp 98.2 F 05/12/20 06:00 Pulse 63 05/12/20 06:00 Resp 17 05/12/20 06:00 BP 131/83 05/12/20 06:00 Pulse Ox 99 05/12/20 06:00 Weight last 48 hrs Weight 98.883 kg Data NPU : 05/04/20 21:40 05/04/20 21:40 A&P Assessment and plan (1) Suicidal ideation: Status: Acute (2) Schizoaffective disorder: Status: Acute Qualifiers: Schizoaffective disorder type: depressive Qualified Code(s): F25.1 - Schizoaffective disorder, depressive type Additional A&P Information CONTINUE current medication, continue to monitor Involuntary Hold Information 96 Hour Hold: 96 Hour Involuntary Admission: No Attestations NPU Medical Necessity Statement*: Continues to require psychiatric hospitalization for medication stabilization, coordination for safe discharge Coding Level of Care Code Acute Wheel Filler for [facility] Diagnoses Suicidal ideation R45.851 Schizoaffective disorder F25.1 Schizoaffective disorder type: depressive
[2020-05-12 13:32] VITALS: BP 121/84; PULSE 97; RESP 18; TEMP 37
[2020-05-12 19:57] VITALS: BP 143/82; PULSE 84; RESP 16; TEMP 37.1; O2SAT 95
[2020-05-12] MEDS: trazodone 50 mg Tablet PO (20:11)
[2020-05-12] MEDS: hyDROXYzine 25 mg Capsule 50 MG PO (20:11)
[2020-05-12] MEDS: OLANZapine 5 mg ODT PO (20:11)
[2020-05-13 06:00] VITALS: BP 111/69; PULSE 64; TEMP 37.2; O2SAT 96
[2020-05-13] MEDS: divalproex DR 500 mg Tablet 1000 MG PO (07:48)
[2020-05-13] MEDS: risperiDONE 1 mg Tablet PO (07:48)
[2020-05-13] MEDS: aspirin 81 mg EC Tablet PO (07:49)
[2020-05-13] MEDS: multivitamin therapeutic Tablet 1 TAB PO (07:49)
[2020-05-13] MEDS: ascorbic acid 500 mg Tablet 250 MG PO (07:49)
[2020-05-13] MEDS: cholecalciferol (vitamin D3) 5,000 unit Tablet 5000 UNIT PO (07:49)
--- NOTE | 2020-05-13 10:15 | PC.SOCIAL ---
Important Medicare Message Reviewed previously signed Important Medicare Message with patient. Updated copy in chart and to patient.
--- NOTE | 2020-05-13 11:10 | P.DS_ITS ---
Diagnoses at Discharge Discharge Diagnosis (1) Suicidal ideation: Status: Acute (2) Schizoaffective disorder: Status: Acute Qualifiers: Schizoaffective disorder type: depressive Qualified Code(s): F25.1 - Schizoaffective disorder, depressive type Reason for Visit Reason for Visit: [facility] Hospital Course Hospital Course 54-year-old male with history of schizoaffective disorder presented to the emergency department with worsening suicidal ideation in the context of worsening auditory hallucinations that were mood congruent. Patient's Abilify was discontinued and he was titrated up on risperidone to risperidone 1 mg daily and 2 mg at bedtime with good effect with no reported medication side effects. Patient noted increasing benefit to include significant decrease in his mood congruent auditory hallucinations as well as significant improvement in his depressive symptoms and was no longer endorsing any suicidal ideation or thoughts about self-harm. Patient participated in unit milieu with no reports of any behavioral disturbances. Patient was not suicidal and did not appear to pose an imminent threat of harm to self or others at the time of discharge. Patient has a guardian, his sister, phone coordination was completed prior to discharge with him discharging to his mother. Low to moderate risk of harm to self or others given no current suicidal ideation and minimal depressive symptoms although patient's risk may be elevated if he is noncompliant with this medication and becomes worsening the psychotic and depressed leading to unexpected, impulsive behavior. Risk mitigation included psychiatric hospitalization for observation, medication stabilization, recommendation to avoid use of any substances as well as recommending compliance with his medication and medication management follow-up. Patient was able to communicate his understanding of the need to avoid the use of any alcohol or substances as well as the need for compliance with his medication and medication management follow-up in order to further mitigate his risk of harm to self and others. Involuntary Hold Information 96 Hour Hold: 96 Hour Involuntary Admission: No Mental Status Exam MSE Comments: Sitting in the day room, polite, interactive, appropriately groomed and dressed, good eye contact Psychomotor activity is neither increased nor decreased, no agitation Speech is normal rate, low volume, spontaneous, clear articulation, not pressured Good, full range of affect, not labile Alert and oriented to person, place, time, situation Memory and concentration appear to be intact per interview Thought process, linear, no flight of ideas, no looseness of associations Thought content, no delusions, no hallucinations, no current suicidal ideation, no homicidal ideation Insight and judgment appear to be intact Discharge Data Vitals: Last Vital Signs Temp 99 F 05/13/20 06:00 Pulse 64 05/13/20 06:00 Resp 16 05/12/20 19:57 BP 111/69 05/13/20 06:00 Pulse Ox 96 05/13/20 06:00 Discharge Plan Discharge Patient Disposition: Home Condition: Stable Prescriptions: New risperidone 1 mg Tablet 1 mg PO BIDWM Qty: 60 RF: 0 Continued multivitamin Tablet 1 tab PO DAILY RF: 0 aspirin 81 mg tablet,delayed release (DR/EC) 81 mg PO DAILY RF: 0 acetaminophen [Tylenol] 325 mg tablet 650 mg PO DAILY PRN (Reason: fever or pain) RF: 0 ibuprofen 200 mg tablet 200 mg PO Q6H PRN (Reason: Pain) RF: 0 Santa Cough Drops 3.2 mg lozenge 3.2 mg MUCOUS MEM Q4H PRN (Reason: cough) RF: 0 ascorbic acid (vitamin C) 500 mg tablet 250 mg PO DAILY RF: 0 cholecalciferol (vitamin D3) 125 mcg (5,000 unit) capsule 125 mcg PO DAILY RF: 0 divalproex [Depakote] 500 mg tablet,delayed release (DR/EC) 500 mg PO BID Qty: 60 RF: 2 Discontinued risperidone [Risperdal] 0.5 mg tablet 0.5 mg PO DAILY Qty: 30 RF: 2 Discharge Orders: Discharge Order (Routine); Ordered 05/13/20 Ordered By: Gaston Loya Referrals: Case Management-[facility] [Other] (A referral has been made for case management services at [facility] per guardian request.) Aravind Wood MD [Physician] - 05/21/20 10:15 am (Medication Check 10:15am check in time) Discharge Diet: Regular Discharge Activity: Resume usual activity Activity Restrictions/Additional Instructions: Referral have been sent to both [facility] and [facility] in [place]. You are currently on their waiting list. I would call weekly to see if anything has opened up. You may also inquire [place] [address] Building Construction Ironworker: Noemy Sanchez [address] [place] [address] Building Construction Ironworker: Anna Discharge Attestations NPU Time Spent in Discharge Care*: greater than 30 min Status at Discharge: Cognitive status at discharge: cognitively intact , Behavioral status at discharge: cooperative , Functional status at discharge: independent ambulation Overall status at discharge: patient is back to baseline Coding Level of Care Code Acute Clinical Services Professional for [facility] Fwd Diagnoses Suicidal ideation R45.851 Schizoaffective disorder F25.1 Schizoaffective disorder type: depressive
[2020-05-13 11:31] VITALS: BP 111/69; PULSE 64; TEMP 37.2; O2SAT 96
== END 2020-05-13 13:06 | disposition home or self-care (01) | DRG 885 ==
LOC: ER 22:23 → NP 22:38
PROVIDERS: Admitting Provider Psychiatry & Neurology Psychiatry; Emergency Provider Physician Assistant; Visit Provider Psychiatry & Neurology Psychiatry
DX: F25.1 Schizoaffective disorder, depressive type (principal); R45.851 Suicidal ideations; Z79.1 Long term (current) use of non-steroidal anti-inflammatories (NSAID); Z79.82 Long term (current) use of aspirin; F17.210 Nicotine dependence, cigarettes, uncomplicated; Z62.810 Personal history of physical and sexual abuse in childhood; F12.11 Cannabis abuse, in remission; E66.9 Obesity, unspecified; Z68.33 Body mass index [BMI] 33.0-33.9, adult; Z63.72 Alcoholism and drug addiction in family; F10.21 Alcohol dependence, in remission; F31.9 Bipolar disorder, unspecified
CPT/HCPCS: 36415; 80053; 80164; 80306; 80307; 85025; 99285

== ENCOUNTER → 2020-05-21 10:03 | Outpatient (BNVA) | payer MEDICARE, SELFPAY | PROVIDERS: Visit Provider Psychiatry & Neurology Psychiatry | DX: F25.1 Schizoaffective disorder, depressive type (principal) | CPT/HCPCS: 99214 ==

== ENCOUNTER → 2020-07-04 08:28 | Outpatient (BNVA) | payer MEDICARE, SELFPAY | PROVIDERS: Visit Provider Psychiatry & Neurology Psychiatry | DX: F25.1 Schizoaffective disorder, depressive type (principal); F17.200 Nicotine dependence, unspecified, uncomplicated; F10.10 Alcohol abuse, uncomplicated | CPT/HCPCS: 99214 ==

== ENCOUNTER → 2020-09-26 09:40 | Outpatient (BNVA) | payer MEDICARE, SELFPAY | PROVIDERS: Visit Provider Psychiatry & Neurology Psychiatry | DX: F25.1 Schizoaffective disorder, depressive type (principal); F17.200 Nicotine dependence, unspecified, uncomplicated; F10.10 Alcohol abuse, uncomplicated | CPT/HCPCS: 99214 ==

== ENCOUNTER → 2020-11-21 07:44 | Outpatient (BNVA) | payer MEDICARE, SELFPAY | PROVIDERS: Visit Provider Psychiatry & Neurology Psychiatry | DX: F25.1 Schizoaffective disorder, depressive type (principal); F17.200 Nicotine dependence, unspecified, uncomplicated; F10.10 Alcohol abuse, uncomplicated | CPT/HCPCS: 99214 ==

== ENCOUNTER → 2021-02-10 11:10 | Outpatient (BNVA) | payer MEDICARE, SELFPAY | PROVIDERS: Visit Provider Psychiatry & Neurology Psychiatry | DX: F25.1 Schizoaffective disorder, depressive type (principal); F10.10 Alcohol abuse, uncomplicated; F17.200 Nicotine dependence, unspecified, uncomplicated | CPT/HCPCS: 99214 ==

== ENCOUNTER → 2021-05-08 09:42 | Outpatient (BNVA) | payer MEDICARE, SELFPAY | PROVIDERS: Visit Provider Psychiatry & Neurology Psychiatry | DX: F25.1 Schizoaffective disorder, depressive type (principal); F10.10 Alcohol abuse, uncomplicated; F17.200 Nicotine dependence, unspecified, uncomplicated | CPT/HCPCS: 99213 ==

== ENCOUNTER 2021-06-18 11:06 | Inpatient (IN) | payer MEDICARE, SELFPAY ==
[2021-06-18 11:32] VITALS: BP 131/95; PULSE 100; RESP 18; TEMP 36.4; O2SAT 94; BMI 31.3
--- NOTE | 2021-06-18 11:45 | W.ED.GENADLT ---
HPI - General Adult General: Chief complaint: Psychiatric Symptoms Stated complaint: Phyc Eval Time Seen by Provider: 06/18/21 11:40 History of Present Illness: HPI: [55]yo patient w/ hx of bipolar disorder, prior auditory hallucination presenting for SI with plan and visual hallucination. Patient tells me that he was very close to killing himself either with a shotgun or knife earlier today. He decided to change his mind last minute and come to the emergency room. On arrival, the patient is AAOx3 and cooperative with my evaluation. No focal complaints of chest pain, shortness of breath, palpitations, N/V, focal GI/ complaints. Currently denies HI or hearing voices. Patient tells me that he is also seeing hallucinations of animals including coyotes, dogs and states that he does not know why they are there. Onset: acute on chronic Duration: ongoing Location: home Severity: severe Associated symptoms: Deny chest pain, dyspnea, nausea, rash, palpitations or vomiting Review of Systems Const: Denies: fever(s) or chills Eyes: Denies: change in vision ENMT: Denies: mouth pain Card: Denies: chest pain or palpitations Resp: Denies: dyspnea or non-productive cough GI: Denies: abdominal pain, nausea, vomiting or diarrhea : Denies: dysuria Musc: Denies: extremity pain Skin/Breast: Denies: rash or new lesions Neuro: Denies: weakness in extremities Psych: Reports: depression, visual hallucinations and suicidal ideation Rufino/Lymph: Denies: easy bruising PFSH ED PFSH: Medical History Alcohol use disorder, severe, in sustained remission Auditory hallucinations Bipolar 1 disorder Psychiatric care Social History Smoking and tobacco status: current every day smoker cigarettes Packs smoked per day: 1 Years cigarettes smoked: 35 Quit status (tobacco): has tried quititng Number of times tried to quit tobacco: 7 Second hand smoke exposure: No Smoking risk assessment/counseling performed?: Yes Tobacco counseling given: counseling >3 minutes Physical Exam Const: COMMON NORMALS: alert HENMT: COMMON NORMALS: atraumatic HEAD & SCALP: atraumatic MOUTH: moist mucous membranes not abnormal Eye: COMMON NORMALS: EOMs intact bilaterally and conjunctivae normal CONJUNCTIVA: Yes conjunctivae normal Neck/C-Spine: COMMON NORMALS: full ROM and supple Resp: COMMON NORMALS: normal respiratory effort and clear to auscultation bilaterally AUSCULTATION: clear to auscultation bilaterally Cardio: COMMON NORMALS: regular rate RATE: regular rate GI: COMMON NORMALS: Soft to palpation and non-tender PALPATION: Yes Soft to palpation Extremity: COMMON NORMALS: full ROM Neuro: SENSORIUM/ORIENTATION: Yes alert MOTOR EXAM: No Abnormal motor strength present and Other motor observations present (no focal motor deficits) Psych: COMMON NORMALS: speech normal SPEECH: Yes normal speech MOOD & AFFECT: Yes depressed mood Course Vital Signs: Vital signs: Vital Signs Temperature 97.6 F 06/18/21 11:32 Pulse Rate 100 06/18/21 11:32 Respiratory Rate 18 06/18/21 11:32 Blood Pressure 131/95 06/18/21 11:32 Pulse Oximetry 94 06/18/21 11:32 MDM - General Adult Medical Decision Making [55]yo patient w/ hx of bipolar disorder/auditory hallucination presenting for suicidal ideation with plan and visual hallucinations. HDS, exam within normal limit Thoughts are linear and organized, and the patient has no AH, or HI. Patient is not hearing voices recently. Clinically the patient displays no overt toxidrome; they are well appearing, with low suspicion for toxic ingestion given history and exam. Symptoms unlikely 2/2 anemia, hypothyroidism, infection, or ICH. Workup: CBC, CMP, Lipase, salicylate/tylenol, UDS, TSH/free T4 Lab findings: wnl [1:30pm] On reassessment, labs and workup wnl. Patient is hemodynamically stable with no acute medical complaints. Case discussed with psychiatric provider Dr. Thomson at [facility] [place] psych inpatient with recommendation for admission Disposition: Psych Discharge Plan Discharge Patient Disposition: Admitted As Inpatient Clinical Impression: Depression with suicidal ideation, Hallucinations, visual Condition: Stable Coding Level of Care Code ED Drafter Civil for Chg Fwd Exam Comprehensive
[2021-06-18 13:13] VITALS: BP 131/95; PULSE 100; RESP 18; TEMP 36.4; O2SAT 94
[2021-06-18 13:29] LABS: Basophils % 0.3 %; Eosinophils % 0.4 %; Hematocrit 45.7 % (42.0-52.0); Hemoglobin 16.3 g/dL (11.7-16.6); Lymphocytes % 28.2 %; Mean Corpuscular HGB Conc 35.7 g/dL (30.0-36.0); Mean Corpuscular Hemoglobin 34.2 pg (28.0-34.0); Mean Corpuscular Volume 95.8 fl (80-94); Mean Platelet Volume 10.2 fL (7.4-10.4); Monocytes # 0.6 10^3/uL (0.2-0.9); Monocytes % 8.2 %; Neutrophils # 4.52 10^3/uL (1.8-7.7); Neutrophils % 62.8 %; Nucleated Red Blood Cells % 0 %; Platelet Count 266 10^3/cmm (130-400); Red Blood Count 4.77 10^6/uL (4.1-5.3); Red Cell Distribution Width 11.5 % (12.1-15.1); White Blood Count 7.2 10^3/uL (4.0-10.0)
[2021-06-18 13:36] LABS: Amphetamines Screen Urine Negative (Negative); Barbiturates Screen Urine Negative (Negative); Benzodiazepines Screen Urine Negative (Negative); Cocaine Screen Urine Negative (Negative); Opiate Screen Urine Negative (Negative); PCP Screen Urine Negative (Negative); THC Screen Urine Negative (Negative)
[2021-06-18 13:59] LABS: Alanine Aminotransferase 18 U/L (0-41); Albumin Level 4.6 g/dL (3.5-5.2); Alkaline Phosphatase 85 IU/L (40-130); Anion Gap 16.3 (5-19); Aspartate Amino Transferase 18 U/L (0-40); Blood Urea Nitrogen 7 mg/dL (6-20); Calcium 9.8 mg/dL (8.5-10.5); Carbon Dioxide 24 mmol/L (22-29); Chloride 102 mmol/L (98-107); Globulin 2.4 g/dL (1.3-4.6); Glomerular Filtration Rate 100.7 mL/min (90-130); Glucose 103 mg/dL (65-115); Lipase 27 U/L (13-60); Osmolality Calculated 284 mOsm/kg (285-295); Potassium 4.3 mmol/L (3.5-5.1); Salicylate 0.5 mg/dL (3-10); Sodium 138 mmol/L (136-145); Thyroid Stimulating Hormone 1.19 uIU/mL (0.27-4.20); Total Bilirubin 0.2 mg/dL (0.15-1.2)
[2021-06-18 14:00] LABS: Acetaminophen < 5.0 ug/mL (10-30)
[2021-06-18 14:59] VITALS: BP 131/95; PULSE 100; RESP 18; O2SAT 94
[2021-06-18 15:08] VITALS: BP 124/83; PULSE 203; RESP 18; TEMP 37.3; O2SAT 96
[2021-06-18] MEDS: nicotine 2 mg Gum BUCCAL ×2 (15:34→18:33)
[2021-06-18] MEDS: divalproex DR 500 mg Tablet PO (20:00)
[2021-06-18 20:33] VITALS: BP 108/74; PULSE 81; RESP 18; TEMP 36.8; O2SAT 98
[2021-06-18] MEDS: risperiDONE 1 mg Tablet PO (21:05)
[2021-06-18] MEDS: trazodone 50 mg Tablet 100 MG PO (21:06)
--- NOTE | 2021-06-18 23:41 | PC.NURSE ---
2105-requested trazodone for sleep. 2205-Resting in bed.
[2021-06-19 06:00] VITALS: BP 131/86; PULSE 79; RESP 18; TEMP 37.1; O2SAT 95
[2021-06-19] MEDS: risperiDONE 1 mg Tablet PO (08:00)
[2021-06-19] MEDS: divalproex DR 500 mg Tablet PO ×2 (08:00→21:16)
[2021-06-19] MEDS: nicotine 21 mg Patch 1 PATCH TRANSDERMA (08:01)
[2021-06-19] MEDS: hyDROXYzine 25 mg Capsule 50 MG PO (09:03)
--- NOTE | 2021-06-19 09:05 | PC.NURSE ---
PRN VISTARIL 50 MG GIVEN PO PER PT C/O STATED ANXIETY
--- NOTE | 2021-06-19 09:28 | PC.NURSE ---
AM Assessment Reports Suicidal thoughts that are passing in nature. Denies HI. Reports AVH. States he is seeing crows fly around in the day area at times. Also states the voices he hears are negative voices. Reports no active suicidal plan at this time. States he has a plan to hurt himself when he is in the outside world. Contracted for safety. States he is still not sleeping well even after he took Trazadone last night. States if he continues to hear voices or has negative thoughts to hurt self he will let this RN or staff know. Currently denies pain.
[2021-06-19 14:00] VITALS: BP 148/84; PULSE 97; RESP 18; TEMP 36.9; O2SAT 98
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
[2021-06-19] MEDS: trazodone 50 mg Tablet 100 MG PO (21:16)
[2021-06-19] MEDS: trazodone 50 mg Tablet PO (21:16)
[2021-06-19] MEDS: risperiDONE 1 mg Tablet 2 MG PO (21:17)
[2021-06-19 22:00] VITALS: BP 142/80; PULSE 90; RESP 18; TEMP 36.9; O2SAT 98
[2021-06-20 06:00] VITALS: BP 114/76; PULSE 66; RESP 17; TEMP 36.6; O2SAT 97
[2021-06-20] MEDS: divalproex DR 500 mg Tablet PO ×2 (08:56→20:31)
[2021-06-20] MEDS: risperiDONE 1 mg Tablet 2 MG PO ×2 (08:56→20:31)
[2021-06-20] MEDS: nicotine 21 mg Patch 1 PATCH TRANSDERMA (08:56)
[2021-06-20 14:00] VITALS: BP 120/81; PULSE 78; RESP 18; TEMP 36.5; O2SAT 96
--- NOTE | 2021-06-20 14:23 | DCPLANNER ---
IMM completed on 06/20/21 @ 4488. Pt was given a copy of rights.
--- NOTE | 2021-06-20 17:17 | P.NPUPN_ITS ---
Subjective NPU Subjective: Patient presents today reporting that he had not slept well for months. He reports that the adjustment in his Risperdal was very effective in helping him sleep and just by the strength of that improvement that he feels significantly better. He talked to the social work team about the possibility of discharge sooner rather than later. We agreed we would discuss the possibility of discharge in the morning if there is continued improvement. Mental Status Exam MSE Comments: This is an obese white male with hospital scrubs on with adequate eye contact and grooming.? No abnormal movements except for mild psychomotor retardation.? Cooperative with exam in no acute distress.? Speech was more normal rate and volume.? Mood described as better, affect congruent.? Thought process organized.? Thought content: Patient denied suicidal or homicidal ideation, he endorsed decrease in his paranoia but there were no delusions noted, he denied significant auditory hallucinations and denied visual hallucinations.? Attention and concentration were intact and memory appeared mostly reliable but none were formally tested.? He is alert and oriented x3.? Insight and judgment appeared fair and impulse control appeared limited. Vitals/I&O/Wt Last Vital Signs Temp 97.7 F 06/20/21 14:00 Pulse 78 06/20/21 14:00 Resp 18 06/20/21 14:00 BP 120/81 06/20/21 14:00 Pulse Ox 96 06/20/21 14:00 Data NPU : 06/18/21 13:21 06/18/21 13:21 A&P Assessment and plan (1) Depression with suicidal ideation: Status: Acute (2) Hallucinations, visual: Status: Acute (3) Alcohol use disorder, mild, abuse: Status: Acute (4) Nicotine dependence, unspecified, uncomplicated: Status: Acute (5) Schizoaffective disorder: Status: Acute Qualifiers: Schizoaffective disorder type: depressive Qualified Code(s): F25.1 - Schizoaffective disorder, depressive type Plan This is a 55-year-old white male with a long history of psychotic disorder and addiction with alcohol use disorder in remission who presents with increased hallucinations, paranoia and suicidality. 1.? Continue current medication.? We increased Risperdal to 2 mg p.o. twice daily. 2.? Continue every 15 minute checks for safety. 3.? Encourage individual, group and milieu therapies. 4.? Encourage sober living treatment after discharge at the highest level of care to which he is willing to commit. Involuntary Hold Information 96 Hour Hold: 96 Hour Involuntary Admission: No Attestations NPU Medical Necessity Statement*: Inpatient hospitalization is medically necessary and the clinically appropriate intervention at this time. We will monitor medic ation to make changes as indicated. Likely length of stay 1-3 days. 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
[2021-06-20] MEDS: trazodone 50 mg Tablet 100 MG PO (20:31)
[2021-06-20] MEDS: trazodone 50 mg Tablet PO (20:31)
[2021-06-20 20:54] VITALS: BP 124/81; PULSE 73; RESP 18; O2SAT 96
[2021-06-21 05:47] VITALS: BP 130/79; PULSE 70; RESP 18; O2SAT 99
[2021-06-21] MEDS: risperiDONE 1 mg Tablet 2 MG PO (08:40)
[2021-06-21] MEDS: divalproex DR 500 mg Tablet PO (08:40)
[2021-06-21] MEDS: nicotine 21 mg Patch 1 PATCH TRANSDERMA (08:40)
[2021-06-21 14:00] VITALS: BP 130/79; PULSE 70; RESP 18; TEMP 36.6; O2SAT 99
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
[2021-06-21 17:01] VITALS: BP 130/79; PULSE 70; RESP 18; TEMP 36.6; O2SAT 99
[2021-06-21] MEDS: nicotine 2 mg Gum BUCCAL (17:20)
[2021-06-21] MEDS: OLANZapine 5 mg ODT PO (17:20)
[2021-06-21] MEDS: hyDROXYzine 25 mg Capsule 50 MG PO (17:20)
== END 2021-06-21 17:25 | disposition home or self-care (01) | DRG 885 ==
LOC: ER 11:53 → NP 13:59
PROVIDERS: Admitting Provider Psychiatry & Neurology Psychiatry; Emergency Provider Emergency Medicine; Visit Provider Psychiatry & Neurology Psychiatry
DX: F25.1 Schizoaffective disorder, depressive type (principal); R45.851 Suicidal ideations; F10.10 Alcohol abuse, uncomplicated; F17.210 Nicotine dependence, cigarettes, uncomplicated
CPT/HCPCS: 80053; 80306; 80307; 83690; 84439; 84443; 85025; 97150; 97165; 99285

== ENCOUNTER → 2021-06-24 09:45 | Outpatient (BNVA) | payer MEDICARE, SELFPAY | PROVIDERS: Visit Provider Psychiatry & Neurology Psychiatry | DX: F25.1 Schizoaffective disorder, depressive type (principal); F10.10 Alcohol abuse, uncomplicated; F17.200 Nicotine dependence, unspecified, uncomplicated | CPT/HCPCS: 99214 ==